=== PATIENT | male | born 1995 | race Two or more races ===

== ENCOUNTER → 2025-04-17 | Outpatient (CLI) | payer MEDICAID, SELFPAY ==
--- NOTE | 2025-04-17 14:45 | XR_ITS ---
Examination: Tibia-Fibula, right, 2 views Technique: Tibia-fibula AP lateral 2 views Date and time of exam: April 17, 2025, 1503 hours INDICATIONS: Patient jumped out of a tree 2 months ago with persistent lower leg pain. FINDINGS: Partial healing subacute fracture proximal fibular shaft with abundant callus and satisfactory alignment Tibia appears intact IMPRESSION: Subacute healing fracture proximal fibular shaft with satisfactory alignment
--- NOTE | 2025-04-17 14:45 | XR_ITS ---
EXAMINATION: Ankle, right 3 views. Technique: Ankle AP, oblique, lateral 3 views Date and time of exam: April 17, 2025, 1503 hours INDICATIONS: Injury to the lower leg 2 months ago FINDINGS: No acute ankle fracture or dislocation No foreign body IMPRESSION: No ankle fracture or dislocation
== END | disposition home or self-care (01) ==
PROVIDERS: Referring Provider Orthopaedic Surgery; Visit Provider Orthopaedic Surgery
DX: S82.491A Other fracture of shaft of right fibula, initial encounter for closed fracture (principal); X58.XXXA Exposure to other specified factors, initial encounter
CPT/HCPCS: 73590; 73610